=== PATIENT | male | born 1970 | race Caucasian/White ===

== ENCOUNTER → 2021-05-30 | Outpatient (CLI) | payer MEDICAID ==
[~2021-05-30] MED LIST: APIX5TAB PO; DILT-26 PO; FENTANYL CITRATE/PF 50MCG/ML 5ML VIAL ONE; IBUP-2741 PO; MIDAZOLAM HCL 5 MG/5 ML VIAL ONE; TOPUD PO
== END | disposition home or self-care (01) ==
LOC: LAB 08:41
PROVIDERS: ATTEND Internal Medicine Clinical Cardiac Electrophysiology
DX: Z20.822 Contact with and (suspected) exposure to COVID-19 (principal)
CPT/HCPCS: 87426